=== PATIENT | male | born 1950 | race Caucasian/White ===

== ENCOUNTER 2019-03-10 13:03 | Inpatient (IN) | payer MEDICARE, MEDICAID ==
[~2019-03-10] VITALS: Ht 175.3 cm; Wt 113.6 kg
[~2019-03-10 13:03] MED LIST: ALBU8.5H8 IH; ATOR40TA71 PO; BICA50TA48 PO; CALC1TAB PO; CHOL400T14 PO; CLOP75TA15 PO; CYCL-1 PO; FERR325T32 PO; FLUT100D2 INH; HYDR-4353 PO; IBUP-24 PO; LISI40TA4 PO; [UNRECOGNIZED DRUG - CODE] IM
[2019-03-10] MEDS ORDERED: ondansetron/PF 4mg/2ml inj IV ONE (13:55)
[2019-03-10] MEDS ORDERED: normal saline 1000ML IV soln IV ONE (13:55)
[2019-03-10] MEDS ORDERED: pantoprazole 40 MG vial IV ONE (13:55)
[2019-03-10] MEDS: pantoprazole 40MG/NS 100ML BAG 100 ML IV SCH ×3 (14:16→18:32)
[2019-03-10 14:24] LABS: BASOPHILS % (AUTO) 0.4 % (0-1); EOSINOPHILS % (AUTO) 0.1 % (0-6); HEMATOCRIT 38.7 % (42.0-52.0); HEMOGLOBIN 13.3 g/dl (14.0-17.9); LYMPHOCYTES # (AUTO) 0.7 X10'3 (1.1-4.8); MEAN CORPUSCULAR HEMOGLOBIN 31.2 PG (27.0-31.0); MEAN CORPUSCULAR HGB CONC 34.4 g/dL (33.0-36.5); MEAN CORPUSCULAR VOLUME 90.6 FL (78-98); MEAN PLATELET VOLUME 8.2 FL (7.4-10.4); MONOCYTES # (AUTO) 0.8 X10'3 (0-0.9); MONOCYTES % (AUTO) 11.1 % (2-12); NEUTROPHILS # (AUTO) 5.6 X10'3 (1.8-7.7); NEUTROPHILS % (AUTO) 78.4 % (42-75); PLATELET COUNT 297 X10'3 (140-440); RED BLOOD COUNT 4.27 X10'6 (4.70-6.10); RED CELL DISTRIBUTION WIDTH 14.5 % (11.5-14.5); WHITE BLOOD COUNT 7.1 X10'3 (4.5-11.0)
[2019-03-10 14:38] LABS: PARTIAL THROMBOPLASTIN TIME 24 SECONDS (22-32)
[2019-03-10 14:45] LABS: ALANINE AMINOTRANSFERASE 19 U/L (12-78); ALBUMIN 3.5 G/DL (3.4-5.0); ALBUMIN/GLOBULIN RATIO 0.8 (1.1-1.5); ALKALINE PHOSPHATASE 159 IU/L (46-116); ANION GAP 14 (8-16); ASPARTATE AMINO TRANSFERASE 30 U/L (10-37); BILIRUBIN,TOTAL 0.7 MG/DL (0.1-1.0); BLOOD UREA NITROGEN 32 MG/DL (7-18); BUN/CREATININE RATIO 28.8 (5.4-32.0); CALCIUM 8.2 MG/DL (8.5-10.1); CHLORIDE 102 MMOL/L (99-107); CREATININE 1.11 MG/DL (0.60-1.10); GLUCOSE 148 MG/DL (70-104); LIPASE < 50 U/L (73-393); POTASSIUM 3.5 MMOL/L (3.5-5.1); SODIUM 142 MMOL/L (135-145); TOTAL CARBON DIOXIDE 26.3 MMOL/L (24-32); TOTAL PROTEIN 7.8 G/DL (6.4-8.2); eGFR 66 ML/MIN
[2019-03-10] MEDS ORDERED: morphine 4 MG/ML inj SYRINge IV ONE (15:00)
[2019-03-10] MEDS ORDERED: proCHLORperazine 10 MG/2 ml inj IV ONE (15:00)
[2019-03-10] MEDS ORDERED: LISI10TA4 PO (15:19)
[2019-03-10] MEDS ORDERED: CHOL100046 PO (15:25)
[2019-03-10] MEDS ORDERED: FERR325T29 PEG (15:25)
[2019-03-10] MEDS ORDERED: CYCL5TAB PO (15:25)
[2019-03-10] MEDS ORDERED: CALC500T11 PO (15:25)
[2019-03-10] MEDS ORDERED: FERR324T4 PO (15:45)
[2019-03-10] MEDS ORDERED: CALC-964 PO (15:55)
--- NOTE | 2019-03-10 16:10 | NUR ---
PT BACK FROM CT
[2019-03-10] MEDS ORDERED: HYDROmorphone 1 mg/ml syringe IV PRN (16:35)
[2019-03-10] MEDS ORDERED: potassium Cl 20 mEq SR tablet PO PRN ×2 (16:35)
[2019-03-10] MEDS ORDERED: HYDROcodone/acetaminophen 5mg/325mg tablet PO PRN (16:35)
[2019-03-10] MEDS ORDERED: bisacodyl 10mg suppository rectal RC PRN (16:35)
[2019-03-10] MEDS ORDERED: magnesium 2GM in 50ml NS 50 ML IV PRN (16:35)
[2019-03-10] MEDS ORDERED: acetaminophen 325mg tablet PO PRN ×2 (16:35)
[2019-03-10] MEDS ORDERED: ondansetron/PF 4mg/2ml inj IV PRN (16:35)
[2019-03-10] MEDS ORDERED: magnesium hydroxide 30ml (MOM) UD suspension PO PRN (16:35)
[2019-03-10] MEDS ORDERED: acetaminophen 650mg rectal suppository RC PRN (16:35)
[2019-03-10] MEDS ORDERED: magnesium 4gm in 100ml NS 100 ML IV PRN (16:35)
[2019-03-10] MEDS ORDERED: mag hydrox/Alum hydrox/simeth 30ml oral suspension PO PRN (16:35)
[2019-03-10] MEDS: ringers solution, lacted 1,000 ML IV SCH (16:35)
[2019-03-10] MEDS ORDERED: potassium CL 10mEq/100ml bag 100 ML IV PRN ×2 (16:35)
[2019-03-10] MEDS ORDERED: magnesium Cl slow-release 64mg tablet PO PRN (16:35)
[2019-03-10] MEDS ORDERED: HYDROmorphone inj. 0.5 MG/0.5 ML DISP.SYRIN IV PRN (16:35)
[2019-03-10] MEDS ORDERED: metoclopramide 5 mg/ml inj IV PRN (16:35)
--- NOTE | 2019-03-10 17:28 | NUR ---
hospitalist at the bedside at this time
--- NOTE | 2019-03-10 18:36 | NUR ---
CALLED MED/SURG FOR REPORT. JOSE C OJEDA WILL CALL BACK. SHE IS GETTING REPORT FROM ANOTHER NURSE
--- NOTE | 2019-03-10 19:20 | NUR ---
Patient in room ED 10. I have received report from ED nurse and had the opportunity to ask questions and will assume patient care when pt arrives to unit.
[2019-03-10 19:45] VITALS: BP 112/64
[2019-03-10] MEDS: lisinopril 10 MG tablet PO SCH (20:28)
[2019-03-10] MEDS: cyclobenzaprine 10mg tablet PO SCH (20:28)
[2019-03-10] MEDS ORDERED: temazepam 15mg capsule PO PRN (21:00)
[2019-03-10] MEDS: budesonide 0.5mg/2ml UD nebule IH SCH (21:20)
[2019-03-10] MEDS: albuterol 2.5 MG/3 ML nebule NEB SCH (21:20)
[2019-03-11] VITALS (12 sets, daily range): BP systolic 98–164; BP diastolic 56–75
[2019-03-11] MEDS: pantoprazole 40MG/NS 100ML BAG 100 ML IV SCH ×5 (00:19→21:03)
[2019-03-11] MEDS: albuterol 2.5 MG/3 ML nebule NEB SCH ×4 (02:58→20:00)
[2019-03-11] MEDS: ringers solution, lacted 1,000 ML IV SCH ×3 (03:05→16:06)
[2019-03-11 06:09] LABS: ALANINE AMINOTRANSFERASE 18 U/L (12-78); ALBUMIN/GLOBULIN RATIO 0.8 (1.1-1.5); ALKALINE PHOSPHATASE 137 IU/L (46-116); ANION GAP 11 (8-16); ASPARTATE AMINO TRANSFERASE 22 U/L (10-37); BILIRUBIN,TOTAL 0.5 MG/DL (0.1-1.0); BLOOD UREA NITROGEN 33 MG/DL (7-18); BUN/CREATININE RATIO 33.3 (5.4-32.0); CALCIUM 7.3 MG/DL (8.5-10.1); CHLORIDE 107 MMOL/L (99-107); CREATININE 0.99 MG/DL (0.60-1.10); GLUCOSE 124 MG/DL (70-104); MAGNESIUM 1.9 MG/DL (1.5-2.4); POTASSIUM 3.5 MMOL/L (3.5-5.1); SODIUM 143 MMOL/L (135-145); TOTAL CARBON DIOXIDE 25.2 MMOL/L (24-32); TOTAL PROTEIN 6.8 G/DL (6.4-8.2); eGFR 75 ML/MIN
--- NOTE | 2019-03-11 06:22 | NUR ---
Problems reprioritized. Patient report given, questions answered & plan of care reviewed with LYNETTE Solo.
[2019-03-11 06:37] LABS: BASOPHILS % (AUTO) 0.1 % (0-1); EOSINOPHILS # (AUTO) 0.1 X10'3 (0-0.9); EOSINOPHILS % (AUTO) 1.8 % (0-6); HEMATOCRIT 33.7 % (42.0-52.0); HEMOGLOBIN 11.6 g/dl (14.0-17.9); LYMPHOCYTES # (AUTO) 1.1 X10'3 (1.1-4.8); MEAN CORPUSCULAR HEMOGLOBIN 31.4 PG (27.0-31.0); MEAN CORPUSCULAR HGB CONC 34.3 g/dL (33.0-36.5); MEAN CORPUSCULAR VOLUME 91.6 FL (78-98); MEAN PLATELET VOLUME 8.5 FL (7.4-10.4); MONOCYTES # (AUTO) 0.7 X10'3 (0-0.9); MONOCYTES % (AUTO) 13.2 % (2-12); NEUTROPHILS # (AUTO) 3.5 X10'3 (1.8-7.7); NEUTROPHILS % (AUTO) 64.9 % (42-75); PLATELET COUNT 244 X10'3 (140-440); RED BLOOD COUNT 3.68 X10'6 (4.70-6.10); RED CELL DISTRIBUTION WIDTH 14.3 % (11.5-14.5); WHITE BLOOD COUNT 5.4 X10'3 (4.5-11.0)
[2019-03-11] MEDS ORDERED: MIDAZolam 5mg/5ml vial ONE (07:14)
[2019-03-11] MEDS ORDERED: fentaNYL/PF 50MCG/1 ML 2ML syringe ONE (07:14)
[2019-03-11] MEDS ORDERED: LIDOcaine Viscous 15ml cup ONE (07:14)
[2019-03-11 07:51] LABS: GASTRIC OCCULT BLOOD POSITIVE (Neg)
[2019-03-11] MEDS: budesonide 0.5mg/2ml UD nebule IH SCH ×2 (08:00→20:00)
[2019-03-11] MEDS: K and/or MAG REPLACEMENT MC SCH (08:00)
--- NOTE | 2019-03-11 10:05 | NUR ---
CHECKED ON PT FOR NURSE OF RECORD, SHE STATED, FLUIDS ARE LEAKING. THE PROTONIX BAG WAS LEAKING FROM THE SIDE. CALLED PHARMACY AND THEY BROUGHT ME A NEW BAG. SCANNED THE BAG AND HUNG IT FOR NURSE OF RECORD.
[2019-03-11] MEDS: lisinopril 10 MG tablet PO SCH ×2 (10:31→21:03)
[2019-03-11] MEDS: clopidogrel 75mg tablet PO SCH (10:31)
--- NOTE | 2019-03-11 18:10 | NUR ---
Patient in room [facility]. I have received report from Germania OJEDA and had the opportunity to ask questions and assume patient care.
--- NOTE | 2019-03-11 18:35 | NUR ---
SHIFT CHANGE NOTE Problems reprioritized. Patient report given, questions answered & plan of care reviewed with LYNETTE MADRIGAL.
[2019-03-11] MEDS: cyclobenzaprine 10mg tablet PO SCH (21:03)
[2019-03-11] MEDS: HYDROcodone/acetaminophen 10/325mg tab PO PRN (21:03)
[2019-03-12] VITALS: BP 137/73
[2019-03-12] MEDS: pantoprazole 40MG/NS 100ML BAG 100 ML IV SCH ×2 (02:26→09:18)
[2019-03-12] MEDS: ringers solution, lacted 1,000 ML IV SCH ×2 (02:26→08:35)
[2019-03-12] MEDS: albuterol 2.5 MG/3 ML nebule NEB SCH ×2 (03:00→08:00)
--- NOTE | 2019-03-12 06:21 | NUR ---
SHIFT CHANGE NOTE: Patient in room [facility]. I have received report from LYNETTE MADRIGAL and had the opportunity to ask questions and assume patient care.
--- NOTE | 2019-03-12 06:24 | NUR ---
Problems reprioritized. Patient report given, questions answered & plan of care reviewed with Germania OJEDA
[2019-03-12 06:27] LABS: HEMATOCRIT 32.9 % (42.0-52.0); HEMOGLOBIN 11.2 g/dl (14.0-17.9); MEAN CORPUSCULAR HEMOGLOBIN 31.5 PG (27.0-31.0); MEAN CORPUSCULAR HGB CONC 33.9 g/dL (33.0-36.5); MEAN CORPUSCULAR VOLUME 93.1 FL (78-98); PLATELET COUNT 264 X10'3 (140-440); RED BLOOD COUNT 3.54 X10'6 (4.70-6.10); RED CELL DISTRIBUTION WIDTH 14.4 % (11.5-14.5); WHITE BLOOD COUNT 4.9 X10'3 (4.5-11.0)
[2019-03-12 06:28] LABS: BASOPHILS % (AUTO) 0.2 % (0-1); EOSINOPHILS # (AUTO) 0.1 X10'3 (0-0.9); EOSINOPHILS % (AUTO) 2.8 % (0-6); LYMPHOCYTES # (AUTO) 0.8 X10'3 (1.1-4.8); LYMPHOCYTES % (AUTO) 16.6 % (21-51); MEAN PLATELET VOLUME 8.4 FL (7.4-10.4); MONOCYTES # (AUTO) 0.9 X10'3 (0-0.9); MONOCYTES % (AUTO) 19.2 % (2-12); NEUTROPHILS % (AUTO) 61.2 % (42-75)
[2019-03-12 06:37] LABS: ALANINE AMINOTRANSFERASE 34 U/L (12-78); ALBUMIN/GLOBULIN RATIO 0.8 (1.1-1.5); ALKALINE PHOSPHATASE 140 IU/L (46-116); ANION GAP 12 (8-16); ASPARTATE AMINO TRANSFERASE 34 U/L (10-37); BILIRUBIN,TOTAL 0.5 MG/DL (0.1-1.0); BLOOD UREA NITROGEN 27 MG/DL (7-18); BUN/CREATININE RATIO 32.1 (5.4-32.0); CALCIUM 6.8 MG/DL (8.5-10.1); CHLORIDE 106 MMOL/L (99-107); CREATININE 0.84 MG/DL (0.60-1.10); GLUCOSE 121 MG/DL (70-104); MAGNESIUM 2.2 MG/DL (1.5-2.4); POTASSIUM 3.3 MMOL/L (3.5-5.1); SODIUM 143 MMOL/L (135-145); TOTAL PROTEIN 6.9 G/DL (6.4-8.2); eGFR > 90 ML/MIN
[2019-03-12] MEDS: HYDROcodone/acetaminophen 10/325mg tab PO PRN (06:43)
[2019-03-12 07:15] LABS: ANISOCYTOSIS 1+; PLATELET ESTIMATE NORMAL; TOTAL CELLS COUNTED 100
[2019-03-12 07:16] VITALS: BP 123/61
[2019-03-12] MEDS: K and/or MAG REPLACEMENT MC SCH (08:00)
[2019-03-12] MEDS: budesonide 0.5mg/2ml UD nebule IH SCH (08:00)
[2019-03-12] MEDS ORDERED: PANT-47 PO (08:45)
[2019-03-12] MEDS: clopidogrel 75mg tablet PO SCH (09:18)
[2019-03-12] MEDS: lisinopril 10 MG tablet PO SCH (09:19)
[2019-03-12 11:00] VITALS: BP 129/70
--- NOTE | 2019-03-12 15:53 | NUR ---
DISCHARGE NOTE: PATIENT STABLE AND APPROPRIATE FOR DISCHARGE, IVS TAKEN OUT, EDUCATION GIVEN, ALL BELONGINGS SENT HOME WITH PATIENT, NEW MEDS E-SCRIPTED TO [facility] IN [place] PATIENT TAKEN TO LOBBY IN A WHEEL CHAIR TO AN AWAITING CAR WHERE SON WILL TAKE PATIENT HOME
== END 2019-03-12 14:04 | disposition home or self-care (01) | DRG 381 ==
LOC: ER 13:04 → ED HOLD 16:31 → SUR 3N 19:44
PROVIDERS: ADMIT Family Medicine; ATTEND Family Medicine
PROC: 0DB58ZX Excision of Esophagus, Via Natural or Artificial Opening Endoscopic, Diagnostic (ICD-10-PCS; principal; 2019-03-11)
PROC: 0DB68ZX Excision of Stomach, Via Natural or Artificial Opening Endoscopic, Diagnostic (ICD-10-PCS; 2019-03-11)
DX: K22.70 Barrett's esophagus without dysplasia (principal); K56.7 Ileus, unspecified; K92.0 Hematemesis; D50.0 Iron deficiency anemia secondary to blood loss (chronic); E78.5 Hyperlipidemia, unspecified; K21.0 Gastro-esophageal reflux disease with esophagitis; E83.51 Hypocalcemia; E87.6 Hypokalemia; K22.8 Other specified diseases of esophagus; I10 Essential (primary) hypertension; G89.3 Neoplasm related pain (acute) (chronic); R73.9 Hyperglycemia, unspecified; J44.9 Chronic obstructive pulmonary disease, unspecified; Z85.038 Personal history of other malignant neoplasm of large intestine; Z85.46 Personal history of malignant neoplasm of prostate; Z85.828 Personal history of other malignant neoplasm of skin; Z90.49 Acquired absence of other specified parts of digestive tract; Z90.79 Acquired absence of other genital organ(s); Z87.891 Personal history of nicotine dependence; K29.50 Unspecified chronic gastritis without bleeding
CPT/HCPCS: 36415; 43239; 71045; 74176; 80053; 82271; 83690; 83735; 85025; 85610; 85730; 86885; 86900; 86901; 87081; 88305; 88312; 93005; 94640; 94760; 96361; 96374; 96375; 99152; 99153; 99285; A4620; C9113; G0378; J0780; J1170; J2250; J2270; J2405; J3010; J7040; J7120; J7626